=== PATIENT | male | born 2000 | race Caucasian/White ===

== ENCOUNTER 2021-01-12 12:43 | Emergency (ER) | payer BC, SELFPAY ==
--- NOTE | ~2021-01-12 | XR_ITS ---
XR chest 2V DATE: 01/12/2021 12:59 INDICATION: Chest pain, shortness of breath TECHNIQUE: PA and lateral views COMPARISON: None FINDINGS: Normal heart size. No hilar or mediastinal enlargement. No pulmonary infiltrate or consolid ation, pleural effusion or pulmonary vascular congestion or pneumothorax is detected. IMPRESSION: Negative Reviewed, dictated and finalized at location A. IMPRESSION: Negative
[2021-01-12 12:52] VITALS: BP 140/80; PULSE 77; RESP 16; TEMP 36.9; O2SAT 100
[2021-01-12 12:53] VITALS: BP 140/80; PULSE 77; RESP 16; TEMP 36.9; O2SAT 100
--- NOTE | 2021-01-12 12:54 | ED.URI ---
HPI - URI/Sore Throat General Chief Complaint: Upper Respiratory Infection Stated Complaint: chest pain Source: patient Mode of arrival: ambulatory Limitations: no limitations History of Present Illness HPI Narrative: Patient is a 20 year old male who presents with multiple complaints. He reports intermittent chest pain for the past 2 weeks. Patient also reports intermittent shortness of breath with exertion x 2 months. Patient reports history of Covid in 07/2020. He denies smoking, denies significant medical history. He denies URI symptoms at this time. MD elicited complaint: other Related Data Home Medications Medication Instructions Recorded Confirmed No Home Medications 01/12/21 01/12/21 Allergies Allergy/AdvReac Type Severity Reaction Status Date / Time No Known Allergies Allergy Verified 01/12/21 12:53 Review of Systems Review of Systems: Narrative: CONSTITUTIONAL: Denies fever, chills, or sweats. EYES: Denies visual changes, redness, or discharge. ENT: Denies rhinorrhea, congestion, sore throat, or otalgia. CARDIOVASCULAR: Reports intermittent chest pain RESPIRATORY: Denies cough, reports dyspnea. GASTROINTESTINAL: Denies abdominal pain, nausea, vomiting, or diarrhea. GENITOURINARY: Denies dysuria or hematuria. SKIN: Denies rash or itching. MUSCULOSKELETAL: Denies back pain, joint pain, or myalgia. NEUROLOGIC: Denies headache, numbness, dizziness, or weakness. PSYCHIATRIC: Denies anxiety or depression. [facility] Past Medical History Medical History (Updated 01/12/21 @ 13:36 by NIKIA Serrano) No significant past medical history Surgical History Surgical History (Updated 01/12/21 @ 12:57 by NIKIA Serrano) No significant past surgical history Family History Family History (Updated 01/12/21 @ 12:57 by NIKIA Serrano) Other No significant family history Social History Social History (Updated 01/12/21 @ 12:58 by NIKIA Serrano) Smoking status: Never smoker Alcohol intake: current Alcohol use details: occasional Substance use: never Living arrangements: with family Comments At the time of signature, I have reviewed and agree with nursing past medical, surgical, social, and family history unless otherwise noted. Please see nursing chart for further information. There is no relevant family history pertinent to the presenting complaint. Exam Narrative: Exam Narrative: GENERAL: Well-appearing, well-nourished, and in no acute distress. HEAD: Normocephalic, atraumatic. EYES: EOMI. No redness or drainage. Conjunctiva are normal. ENT: Mucous membranes pink and moist. Nares clear. No rhinorrhea. TMs normal bilaterally. Throat normal. Uvula midline. NECK: AROM. Supple. No lymphadenopathy. CHEST: No respiratory distress. Clear to auscultation. HEART: Regular rate and rhythm. No murmur appreciated. Normal peripheral pulses. GI: Soft, nontender without rebound, or guarding. No distention. Bowel sounds normal in all quadrants. MUSCULOSKELETAL: No bony tenderness. EXTREMITIES: Normal range of motion. No edema. SKIN: Warm, dry, no rash. NEURO: No focal deficits. Alert and oriented x3. Gait steady. PSYCH: Normal affect. No signs of depression or anxiety. Course Vital Signs Vital signs: Vital Signs Temperature 36.9 C 01/12/21 12:52 Pulse Rate 77 01/12/21 12:52 Respiratory Rate 16 01/12/21 12:52 Blood Pressure 140/80 01/12/21 12:52 Pulse Oximetry 100 01/12/21 12:52 Temperature 36.9 C 01/12/21 12:53 Pulse Rate 77 01/12/21 12:53 Respiratory Rate 16 01/12/21 12:53 Blood Pressure 140/80 01/12/21 12:53 Pulse Oximetry 100 01/12/21 12:53 Reviewed. Patient has been instructed to follow-up with his PCP regarding his blood pressure. MDM - URI/Sore Throat MDM Narrative Medical decision making narrative: Patient's EKG and chest xray are negative. Discussed with patient the need for further evaluation and labs, patien
--- NOTE | 2021-01-12 13:04 | ECG_ITS ---
Measurements Intervals Dawn Rate: 61 P: 58 IA: 154 QRS: 57 QRSD: 112 T: 30 QT: 402 QTc: 407 Interpretive Statements SINUS RHYTHM WITH SINUS ARRHYTHMIA INTRAVENTRICULAR CONDUCTION DELAY MINIMAL Q WAVES- INFERIOR LEADS BORDERLINE ECG Electronically Signed On 01-12-2021 17:12:51 CDT by Cristian Pizano D.O.
== END 2021-01-12 13:47 | disposition home or self-care (01) ==
PROVIDERS: Emergency Provider Nurse Practitioner
DX: R06.00 Dyspnea, unspecified (principal); Z86.16 Personal history of COVID-19
CPT/HCPCS: 71046; 93005; 99203; G0463

== ENCOUNTER 2024-09-09 15:05 | Emergency (ER) | payer SELFPAY ==
[2024-09-09 15:14] VITALS: BP 139/88; PULSE 74; RESP 16; TEMP 36; O2SAT 99
--- NOTE | 2024-09-09 16:16 | ED_ITS ---
HPI - Eye Problem General Chief complaint: Eye Problems Stated complaint: Eyes Irritation Time Seen by Provider: 09/09/24 15:30 Source: patient Mode of arrival: ambulatory Limitations: no limitations History of Present Illness HPI Narrative: Jason is a 24-year-old male patient presenting to the clinic today with complaints of bilateral eye irritation. He reports symptoms started approximately 5 days ago. Was given prescription for polymyxin eyedrops any started using them however when he is began use them he developed blurry vision. He has stopped using the drops at this time. Does have some yellow drainage coming from the right eye. Visual acuity was completed and he was 20/ 70. He does not wear any corrected vision wear. States the eyes feel irritated. Related Data Home Medications ?Medication ?Instructions ?Recorded ?Confirmed ?Last Taken ?Type amoxicillin 875 mg tablet 875 mg PO Q12H 09/09/24 09/09/24 Unknown History Allergies Allergy/AdvReac Type Severity Reaction Status Date / Time No Known Allergies Allergy Verified 09/09/24 15:18 Review of Systems Review of Systems: Pertinent positives per HPI. Patient denies any fever, chills, rash, headache, dizziness, cough, runny nose, sore throat, shortness of breath, chest pain, palpitations, nausea, vomiting, diarrhea, constipation, abdominal pain, or any urinary issues. PMFSH Past Medical History Medical History (Updated 09/09/24 @ 16:19 by Federico Perla APRN) No significant past medical history Surgical History Surgical History No significant past surgical history Family History Family History Other No significant family history Social History Social History Smoking status: Never smoker Alcohol intake: current Alcohol use details: occasional Substance use: never Living arrangements: with family Comments At the time of my signature, I reviewed and agree with the nursing past medical, surgical, social, and family history. There is no relevant family history pertinent to the patient complaint. Exam Narrative: General: Well-developed, well nourished, in no apparent distress Head: Normocephalic, atraumatic Eyes: Pupils equally round and reactive to light bilaterally, EOM intact, bilateral sclera and conjunctive injected, yellow crusty discharge to the right eye, lids mildly swollen Ears: TMs intact and clear, ear canals clear, no drainage, grossly hearing normal. Nose: Nares patent, no discharge, no inflammation, no sinus tenderness. Mouth: Oropharynx without lesions or masses, good dentition, MMM. Neck: Supple, trachea midline, no enlargement of anterior or posterior cervical nodes, no thyroid masses or goiter palpable. Cardio: Regular rate and rhythm, s1 and s2 normal, no murmur appreciated. Resp: Clear to auscultation bilaterally anteriorly and posteriorly, no rhonchi, rales, wheezing or rubs Course Course Emergency Course: Portions of this record may have been created with voice recognition software. Level of Care: Express Care Visit Vital Signs Vital signs: Vital Signs Temperature 36.0 C L 09/09/24 15:14 Pulse Rate 74 09/09/24 15:14 Respiratory Rate 16 09/09/24 15:14 Blood Pressure 139/88 09/09/24 15:14 Pulse Oximetry 99 09/09/24 15:14 Oxygen Delivery Room Air 09/09/24 15:14 Temperature 36.0 C L 09/09/24 15:14 Pulse Rate 74 09/09/24 15:14 Respiratory Rate 16 09/09/24 15:14 Blood Pressure 139/88 09/09/24 15:14 Pulse Oximetry 99 09/09/24 15:14 Oxygen Delivery Room Air 09/09/24 15:14 Vital signs reviewed MDM - Eye Problem MDM Narrative Medical decision making narrative: At the time of visit patient is resting comfortably on the exam table. Patient appears to be nontoxic. Plan: Recommend transfer to [place] ER for ophthalmology evaluation is patient's vision is 20 70 and he is reporting blurry vision. He declined to go to ER at this time. AMA paper was completed and risk and benefits were reviewed and he voiced understanding. Will have patient stop the polymyxin eyedrops and try tobramycin eyedrops for conjunctivitis and have him follow-up with his eye doctor immediately. Recommend going to the emergency room if his symptoms worsen and he voiced understanding Supportive measures were discussed with the patient and they voiced understanding discharge instructions and agrees to treatment plan. Return precautions reviewed Differential Diagnosis Differential diagnosis: Likely corneal abrasion, conjunctivitis, acute iritis, hyphema, subconjunctival hemorrhage, glaucoma, corneal ulcer and ruptured globe Discharge Plan Discharge Clinical Impression: Changes in vision, Eye irritation Patient Disposition: Home, Self-Care Condition: Stable Instructions: Antibiotic Form, Blurred Vision (ED) Additional Instructions: Recommend transfer [facility] for [facility]mology evaluation and you declined at this time. Your visual acuity was 20/70 Stop taking the polymyxin eyedrops Instill tobramycin eyedrops as prescribed Practice good hand washing techniques Avoid touching eyes May use warm moist washcloth to help remove eye discharge If eyes are matted shut-do not pry eyes open-use a warm moist cloth to loosen matting and wipe matter away from eye May take Tylenol/Motrin as needed for pain or fever May take Benadryl as needed for itching Follow-up with your eye doctor as soon as possible Go to the emergency room if you develop any fever that is not controlled by Tylenol or Motrin, loss of vision, eye pain, increase eye swelling,visual changes, headache, confusion, lethargy, weakness, chest pain, or shortness of breath. Patient Language: Nigerian Prescriptions: New tobramycin 0.3 % drops 1 drp EACH EYE Q4H 7 Days Qty: 5 0RF No Action amoxicillin 875 mg tablet 875 mg PO Q12H Follow-up/Referrals: PHYSICIAN,JOURNAL ENTRY AUDIT CLERK [Primary Care Provider] - Time of Disposition: 16:18 Quality NIHSS Nursing Documentation ED NIHSS nursing documentation: reviewed/agree
== END 2024-09-09 16:29 | disposition home or self-care (01) ==
PROVIDERS: Emergency Provider Nurse Practitioner Family
DX: H53.8 Other visual disturbances (principal); H57.13 Ocular pain, bilateral
CPT/HCPCS: 99213; G0463